=== PATIENT | male | born 1985 | race African-American/Black ===

== ENCOUNTER → 2019-10-31 | Outpatient (CLI) | payer OTHER ==
[~2019-10-31] MED LIST: ACET325T9 PO
--- NOTE | 2019-10-31 10:04 | PDOC2 ---
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 Patient describes the pain is in the low back rating the posterior gluteus on the right posterior right thigh posterior calf lateral thigh anterior thigh and medial lower leg into the foot worse with walking standing changing positions better with sitting or laying down but wakes him from sleep at least 3 times at night patient ported can affect his bowel bladder control but not any incontinence. Patient wants it does not affect his ability to walk most times but can point to having significant fatigue even for standing for more than 15 to 20 minutes because of the pain to increase as well. She has tried physical therapy also is doing current exercise both of which have been helpful but not relieving the pain long-term. Patient relates a incident about 3 weeks ago when the pain was so bad that he had to go to the emergency room was given a IM steroid injection as well as morphine which decreased the pain enough where he can get back moving more naturally. Patient describes pain is sharp and throbbing radiating with numbness in the right lower extremity as well as in the low back. Patient rates his disability rating 0-10 10 being the worst is a 9 with family home responsibilities 10 with recreation 8 with social activity occupation and sexual behavior 7 with self-care and 6 with life support activities. Patient have MRI scan of the lumbar spine showing L3-4 L4-5 L5-S1 with superimposed broad-based disc protrusion L34 with disc material lightly contacting the bilateral transitioning L4 nerve roots in the lateral recesses L4-5 shows mild diffuse disc bulge with mild right and moderate left neuroforaminal narrowing with disc material likely contacting the transitioning bilateral L5 nerve roots in the lateral recesses. PAST MEDICAL HISTORY: PMH: Arthritis, otherwise patient is been in generally good health PREVIOUS SURGERIES: Past Surgical Hx: Right shoulder surgery for bone spur 2018, left hip surgery 2019, tonsillectomy. 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 REVIEW OF SYSTEMS: ROS: Positive those on his mid to his present illness all systems reviewed otherwise negative complete formal document on patient's chart. PHYSICAL EXAM: VS: Blood pressure 125/69 pulse 70 respiration 16 temperature 98.0 F height is 6 foot 2 inches weight is 2 1 6 pounds PE: PHYSICAL EXAMINATION: GENERAL: The patient is awake, alert, oriented, appropriate, very pleasant demeanor HEENT: Shows normocephalic, atraumatic. Extraocular movements are intact and symmetrical. Oral cavity: Mucous membranes moist and pink. Dentition is intact. NECK: Shows anterior throat supple without palpable lymphadenopathy noted. Swallow reflex symmetrical. CHEST: Shows normal on inspection. Breath sounds are clear bilaterally, no rales rhonchi or wheezes are auscultated. HEART: Shows S1, S2 clear. No murmurs auscultated. ABDOMEN: Soft, nontender, nondistended. No palpable organomegaly is noted. No rebound or guarding demonstrated. BACK: Shows spine grossly in the midline. Normal-appearing cervical lordotic curvature. There is normal thoracic kyphosis, and the lumbar lordotic curva ture. Lumbar paraspinous muscles show symmetrical on inspection, on palpation shows some moderate tenderness diffusely throughout the middle and lower distribution of the paraspinous muscles bilaterally but without specific trigger points, without radiation of pain. The patient has good rotational motion of the lumbar spine, both laterally as well as extension and flexion greater than 10 degrees bilaterally and 10 degrees extension forward flexion at 45 degrees without significant difficulty. No tenderness over the spinous processes, sacrum or sacroiliac regions. EXTREMITIES: Lower extremities show deep tendon reflexes 2+ in the patellar and tendo calcaneus tendons. Motor exam is 5 on a scale of 5 with right dorsiflexion, extension, quadriceps and hamstring flexion and 5/5 on the left. Peripheral pulses are 1+ posterior tibial. No peripheral edema is noted bilaterally. Lower extremities are warm and dry to touch, equal in color and appearance. Straight leg raise noted to be negative on the right and,left side is negative. Gaenslen's and Kamaljit's maneuvers are negative as well. The patient is able to walk stand on his toes without difficulty or loss of balance does not appear to have a significant favoring gait with the right or left lower extremities not use any assistive devices to ambulate.. SKIN: Shows warm and dry, good turgor. No edema. No sores, rashes or bruising throughout. IMPRESSION: Impression: Impression and plan: This is a 34-year-old male with long history approximate 12 years low back and right lower extremity pain in a radicular fashion. Status post physical therapies current exercise and medication managements with some relief but not long lasting. Options were discussed with the patient including conservative medical management physical therapies interventional techniques, and he would like to pursue interventional techniques we discussed a lumbar epidural steroid injection using description as well as anatomical models to describe the procedure. Patient will await preauthorization with his insurance provider we will plan on lumbar epidural steroid injection on his return. In the meantime we will try Medrol Dosepak prescription was given with instructions as well as side effects to be aware of. Patient will follow-up after approval and we will plan a lumbar epidural steroid injection at that time. JUAN NORTON MD Oct 31, 2019 10:04
== END | disposition home or self-care (01) ==
LOC: PNCL 08:31
PROVIDERS: ATTEND Anesthesiology
DX: M54.5 Low back pain (principal)
CPT/HCPCS: 99205; G0463

== ENCOUNTER → 2019-11-14 | Outpatient (CLI) | payer OTHER ==
--- NOTE | 2019-11-14 09:43 | PDOC ---
Progress Note - Pain Clinic Date of Service: DOS: DATE: 11/14/19 TIME: 09:41 Diagnosis: Dx: Lumbar radiculopathy with lumbar degenerative disc disease History or Present Illness: HPI: 34-year male returns for follow-up status post initial evaluation and preauthorization for lumbar epidural steroid injection. We tried a Medrol Dosepak after his last visit and patient did very well, with approximately 75% improvement. Reports the pain in his right leg is now only minimal has some pain in the low back but only intermittent and only with activity. Patient reports of increased activity greater ease and comfort walking greater distances during work activities household activities much greater ease and comfort sleeping well at night does not awaken her from sleep. Patient rates pain as a 4 to scale 10 is worse of the past week 2 on average once least is a 1 today describes as sharp and tight in the low back but much better with radiating pain in the right lower extremity almost gone. Reports no new motor or sensory deficits no new bowel bladder incontinence or other complaints. Physical Exam: VS: Blood pressure is 121/69 pulse 85 respirations are 16 temperatures 98.1 F weight is 216 pounds PE: PHYSICAL EXAMINATION: GENERAL: The patient is awake, alert, oriented, appropriate, very pleasant demeanor HEENT: Shows normocephalic, atraumatic. Extraocular movements are intact and symmetrical. NECK: Shows anterior throat supple without palpable lymphadenopathy noted. Swallow reflex symmetrical. CHEST: Shows normal on inspection. Breath sounds are clear bilaterally. HEART: Shows S1, S2 clear. No murmurs auscultated. ABDOMEN: Soft, nontender, nondistended. No palpable organomegaly is noted. No rebound or guarding demonstrated. BACK: Shows spine grossly in the midline. Normal-appearing cervical lordotic curvature. There is slightly increased thoracic kyphosis, some minor flattening of the lumbar lordotic curvature. Lumbar paraspinous muscles show symmetrical on inspection, on palpation shows some moderate tenderness diffusely throughout the upper, middle and lower distribution of the paraspinous muscles bilaterally without specific trigger points, without radiation of pain. The patient has good rotational motion of the lumbar spine, both laterally as well as extension and flexion without significant difficulty. No tenderness over the spinous processes, sacrum or sacroiliac regions. EXTREMITIES: Lower extremities show deep tendon reflexes 2+ in the patellar and tendo calcaneus tendons. Motor exam is 5 on a scale of 5 with right dorsiflexion, extension, quadriceps and hamstring flexion and 5/5 on the left. Peripheral pulses are 1+ posterior tibial. No peripheral edema is noted bilaterally. Lower extremities are warm and dry to touch, equal in color and appearance. SKIN: Shows warm and dry, good turgor. No edema. No sores, rashes or bruising throughout. Procedure: Procedure: Options were discussed with the patient. Patient's old chart was reviewed his his current medication regimen updated current review of systems updated today as well. As patient is doing quite a bit better after the Medrol Dosepak, we will hold on the injection as he has a preauthorization until March. Patient will increase his activity as tolerated we will maintain stretching strengthening exercises and if the pain returns will return for a lumbar epidural steroid junction at that time. Medication Injected: Med Injected: None Condition at Discharge: Condition at Discharge: Condition at discharge stable JUAN NORTON MD Nov 14, 2019 09:43
== END | disposition home or self-care (01) ==
LOC: PNCL 09:08
PROVIDERS: ATTEND Anesthesiology
DX: M51.16 Intervertebral disc disorders with radiculopathy, lumbar region (principal)
CPT/HCPCS: 99212; G0463

== ENCOUNTER → 2020-04-03 | Outpatient (CLI) | payer OTHER ==
[~2020-04-03] MED LIST changes: +IOHEXOL 180 MG/ML 10 ML VIAL. ONE; +methylPREDNISolone ACETATE 40 MG/ML VIAL. ONE; +methylPREDNISolone ACETATE 80 MG/ML VIAL. ONE
--- NOTE | 2020-04-03 11:01 | PDOC ---
Progress Note - Pain Clinic Date of Service: DOS: DATE: 04/03/20 TIME: 10:58 Diagnosis: Dx: Lumbar radiculopathy with lumbar degenerative disc disease History or Present Illness: HPI: 34-year-old male returns follow-up status post initial evaluation and preauthorization for epidural steroid injection patient initially was doing better on his own but now the pain is returned significant in the low back and right lower extremity in the posterior gluteus posterior thigh lateral thigh anterior thigh medial thigh into the lower leg and posterior calf worse with walking standing changing positions patient reports is getting worse with time now over the past few days has been much more noticeable is been waking her from sleep at night about every 6-7 hours patient reports the pain is a 9 on scale 10 is worse with the past week 8 on average 7 its least is an 8 today patient ports radiating constant some on the left side as well but mostly on the right side and across the low back described as constant radiating aching and dull in the back and radiating shooting in the right leg. Patient reports no new motor or sensory deficits no new bowel or bladder incontinence or other complaints. Physical Exam: VS: Blood pressure is 149/73 pulse 79 respirations 16 temperature is 98.1 F height is 6 foot 2 inches weight is 227 pounds PE: PHYSICAL EXAMINATION: GENERAL: The patient is awake, alert, oriented, appropriate, very pleasant demeanor HEENT: Shows normocephalic, atraumatic. Extraocular movements are intact and symmetrical. Oral cavity: Mucous membranes moist and pink. NECK: Shows anterior throat supple without palpable lymphadenopathy noted. Swallow reflex symmetrical. CHEST: Shows normal on inspection. Breath sounds are clear bilaterally. HEART: Shows S1, S2 clear. No murmurs auscultated. ABDOMEN: Soft, nontender, nondistended, flat. No palpable organomegaly is noted. No rebound or guarding demonstrated. BACK: Shows spine grossly in the midline. Normal-appearing cervical lordotic curvature. There is slightly increased thoracic kyphosis, some minor flattening of the lumbar lordotic curvature. Lumbar paraspinous muscles show symmetrical on inspection, on palpation shows some moderate tenderness diffusely throughout the upper, middle and lower distribution of the paraspinous muscles, but without specific trigger points, without radiation of pain. The patient has good rotational motion of the lumbar spine, both laterally as well as extension and flexion without significant difficulty. No tenderness over the spinous processes, sacrum or sacroiliac regions. EXTREMITIES: Lower extremities show deep tendon reflexes 2+ in the patellar and tendo calcaneus tendons. Motor exam is 5 on a scale of 5 with right dorsiflexion, extension, quadriceps and hamstring flexion and 5/5 on the left. Peripheral pulses are 1+ posterior tibial. No peripheral edema is noted bila terally. Lower extremities are warm and dry to touch, equal in color and appearance. SKIN: Shows warm and dry, good turgor. No edema. No sores, rashes or bruising throughout. Procedure: Procedure: Options were discussed with the patient. Patient's old chart reviewed his current medication regimen updated current review of systems updated today as well. We will proceed with a lumbar epidural steroid injection today with fluoroscopic guidance. Risks were discussed including but not limited to: Bleeding, infection, possibility of epidural hematoma and subsequent neurological compromise, dural puncture, headaches, spinal cord and/or nerve damage, side effects of steroid medication, and poor results regarding pain control. Patient understands wished to proceed. Patient will return to clinic in approximate 2 weeks for follow-up was counseled as to return appointment, activity level, and side effects to be aware of. Medication Injected: Med Injected: Procedure is lumbar epidural steroid injection under local anesthetic using sterile prep and drape at the L4-5 level using C-arm fluoroscopic guidance in both AP and lateral views medications injected is 120 mg Depo-Medrol + 10 mL preservative-free normal saline and 2 mL contrast- condition at discharge is stable patient tolerated procedure well had no complications. Condition at Discharge: Condition at Discharge: Initial discharge stable, patient tolerated procedure well, and had no complications. JUAN NORTON MD Apr 03, 2020 11:01
== END | disposition home or self-care (01) ==
LOC: PNCL 10:20
PROVIDERS: ATTEND Anesthesiology
DX: M51.16 Intervertebral disc disorders with radiculopathy, lumbar region (principal); Z79.899 Other long term (current) drug therapy
CPT/HCPCS: 62323; J1030; J1040; Q9965; 62322